=== PATIENT | female | born 1995 | race Caucasian/White ===

== ENCOUNTER 2017-08-21 16:31 | Emergency (ER) | payer MEDICAID ==
[~2017-08-21] VITALS: Ht 162.6 cm; Wt 51.5 kg
[~2017-08-21 16:31] MED LIST: ESCI10TA10 PO; LORA-445 PO; OXYC1TAB7 PO; PROM25TA10 PO
[2017-08-21] MEDS ORDERED: SODIUM CHLORIDE FLUSH 10ML SYR IVF ONE (17:00)
[2017-08-21] MEDS ORDERED: SODIUM CHLORIDE 0.9% 1,000ML IVBOLUS ONE ×2 (17:00→19:30)
[2017-08-21] MEDS ORDERED: ONDANSETRON 2MG/ML, 2ML IVPush ONE ×2 (17:00→19:30)
[2017-08-21 17:11] LABS: HEMATOCRIT 41.5 % (34.6-47.8); WHITE BLOOD COUNT 9.7 x10^3/uL (4.5-13.2)
[2017-08-21 17:23] LABS: BLOOD UREA NITROGEN 9 mg/dL (7-18)
[2017-08-21] MEDS ORDERED: ONDANSETRON 2MG/ML, 2ML ONE ×3 (17:30→20:29)
[2017-08-21 17:40] LABS: ASPARTATE AMINO TRANSFERASE 8 U/L (15-37)
[2017-08-21 19:42] VITALS: BP 108/50
== END 2017-08-21 21:14 | disposition home or self-care (01) ==
LOC: ED 18:59
DX: O21.9 Vomiting of pregnancy, unspecified (principal); R11.0 Nausea; O99.331 Smoking (tobacco) complicating pregnancy, first trimester; F17.210 Nicotine dependence, cigarettes, uncomplicated; Z3A.08 8 weeks gestation of pregnancy
CPT/HCPCS: 36415; 76801; 80053; 81003; 84702; 85025; 96361; 96374; 96375; 99285; J2405; J7030

== ENCOUNTER 2017-09-25 22:46 | Emergency (ER) | payer MEDICAID ==
[~2017-09-25] VITALS: Ht 162.6 cm; Wt 50.0 kg
[2017-09-26] MEDS ORDERED: KETOROLAC 30 MG/1 ML ONE (00:21)
[2017-09-26 00:25] LABS: HEMATOCRIT 41.8 % (34.6-47.8); HEMOGLOBIN 13.9 g/dL (11.7-16.4); WHITE BLOOD COUNT 10.4 x10^3/uL (4.5-13.2)
[2017-09-26] MEDS ORDERED: KETOROLAC 30 MG/1 ML IVPush ONE (00:30)
[2017-09-26] MEDS ORDERED: SODIUM CHLORIDE 0.9% 1,000ML IVBOLUS ONE (00:30)
[2017-09-26] MEDS ORDERED: SODIUM CHLORIDE FLUSH 10ML SYR IVF ONE (00:30)
[2017-09-26 00:37] LABS: ASPARTATE AMINO TRANSFERASE 12 U/L (15-37); BLOOD UREA NITROGEN 9 mg/dL (7-18)
[2017-09-26 03:28] VITALS: BP 111/53
== END 2017-09-26 03:30 | disposition home or self-care (01) ==
LOC: ED 23:59
DX: N30.01 Acute cystitis with hematuria (principal); M32.9 Systemic lupus erythematosus, unspecified; F19.10 Other psychoactive substance abuse, uncomplicated
CPT/HCPCS: 36415; 76770; 76830; 80053; 81001; 83690; 84703; 85025; 87086; 96361; 96374; 99285; J1885; J7030

== ENCOUNTER 2018-03-01 03:43 | Emergency (ER) | payer MEDICAID ==
[~2018-03-01] VITALS: Ht 165.1 cm; Wt 56.0 kg
[2018-03-01 03:47] VITALS: BP 121/91
== END 2018-03-01 05:22 | disposition home or self-care (01) ==
LOC: ED 05:19
DX: H66.002 Acute suppurative otitis media without spontaneous rupture of ear drum, left ear (principal); G44.319 Acute post-traumatic headache, not intractable; R11.2 Nausea with vomiting, unspecified; F07.81 Postconcussional syndrome; Z90.49 Acquired absence of other specified parts of digestive tract; Z88.1 Allergy status to other antibiotic agents; Z88.8 Allergy status to other drugs, medicaments and biological substances
CPT/HCPCS: 70450; 99284

== ENCOUNTER 2018-06-22 21:47 | Emergency (ER) | payer MEDICAID ==
[~2018-06-22] VITALS: Ht 165.1 cm; Wt 54.6 kg
[2018-06-22 21:48] VITALS: BP 151/100
[2018-06-22] MEDS ORDERED: ONDANSETRON ODT 4 MG PO ONE (22:30)
[2018-06-22] MEDS ORDERED: MAALOX/HYOSCYAMINE/LIDOCAINE 45 ML BTL PO ONE (22:30)
[2018-06-22] MEDS ORDERED: MAALOX/HYOSCYAMINE/LIDOCAINE 45 ML BTL ONE (22:32)
[2018-06-22] MEDS ORDERED: ONDANSETRON ODT 4 MG ONE (22:32)
[2018-06-22 22:42] LABS: BASOPHILS # (AUTO) 0.04 x10^3/uL (0-0.3); BASOPHILS % (AUTO) 1 % (0-1); EOSINOPHILS # (AUTO) 0.22 x10^3/uL (0-0.8); EOSINOPHILS % (AUTO) 3 % (1-7); LYMPHOCYTES % (AUTO) 20 % (22-44); MD NO; MEAN CORPUSCULAR HEMOGLOBIN 32.4 pg (27.0-34.8); MEAN CORPUSCULAR HGB CONC 34.2 g/dL (32.4-35.8); MEAN CORPUSCULAR VOLUME 94.6 fL (80-100); MEAN PLATELET VOLUME 8.2 fL (7.4-10.4); MONOCYTES # (AUTO) 0.61 x10^3/uL (0-1.4); MONOCYTES % (AUTO) 7 % (2-9); NEUTROPHILS # (AUTO) 6.05 x10^3/uL (1.8-8.0); NEUTROPHILS % (AUTO) 70 % (42-75); PLATELET COUNT 336 x10^3/uL (130-400); RED CELL DISTRIBUTION WIDTH 13.1 % (9.6-15.2)
[2018-06-22 22:53] LABS: ALANINE AMINOTRANSFERASE 18 U/L (12-78); ALBUMIN 3.9 g/dL (3.4-5.0); ANION GAP 6 mmol/L (5-15); CALCIUM 9.2 mg/dL (8.5-10.1); CHLORIDE 103 mmol/L (98-107); CREATININE 0.94 mg/dL (0.55-1.02)
[2018-06-22 22:56] LABS: ALKALINE PHOSPHATASE 65 U/L (45-117); BILIRUBIN,TOTAL 1.8 mg/dL (0.2-1.0); TOTAL PROTEIN 8.5 g/dL (6.4-8.2)
[2018-06-22 23:10] LABS: HCG UR SG 1.015 (1.003-1.030); MICROSCOPIC AUTO
[2018-06-22 23:13] LABS: CULTURE INDICATED? NO
== END 2018-06-23 00:24 | disposition home or self-care (01) ==
LOC: ED 06-23 00:18
DX: K29.20 Alcoholic gastritis without bleeding (principal); R11.2 Nausea with vomiting, unspecified; Z88.1 Allergy status to other antibiotic agents; Z88.8 Allergy status to other drugs, medicaments and biological substances; Z90.49 Acquired absence of other specified parts of digestive tract
CPT/HCPCS: 36415; 80053; 81001; 81025; 83690; 85025; 99284; Q0162

== ENCOUNTER 2018-09-07 16:37 | Emergency (ER) | payer MEDICAID ==
[~2018-09-07] VITALS: Ht 162.6 cm; Wt 58.1 kg
[2018-09-07] MEDS ORDERED: ONDANSETRON 2MG/ML, 2ML ONE (17:46)
[2018-09-07] MEDS ORDERED: FAMOTIDINE 20 MG/2 ML ONE (17:46)
[2018-09-07] MEDS ORDERED: SODIUM CHLORIDE 0.9% 1,000ML IVBOLUS ONE (18:00)
[2018-09-07] MEDS ORDERED: ONDANSETRON 2MG/ML, 2ML IVPush ONE (18:00)
[2018-09-07] MEDS ORDERED: FAMOTIDINE 20 MG/2 ML IVPush ONE (18:00)
[2018-09-07 18:08] LABS: BASOPHILS # (AUTO) 0.03 x10^3/uL (0-0.1); BASOPHILS % (AUTO) 0 % (0-1); EOSINOPHILS # (AUTO) 0.11 x10^3/uL (0-0.4); EOSINOPHILS % (AUTO) 1 % (1-7); LYMPHOCYTES # (AUTO) 1.33 x10^3/uL (1-3.4); LYMPHOCYTES % (AUTO) 13 % (22-44); MD NO; MEAN CORPUSCULAR HEMOGLOBIN 32.1 pg (27.0-34.8); MEAN CORPUSCULAR HGB CONC 33.9 g/dL (32.4-35.8); MEAN CORPUSCULAR VOLUME 94.8 fL (80-100); MEAN PLATELET VOLUME 8.4 fL (7.4-10.4); MONOCYTES # (AUTO) 0.53 x10^3/uL (0.2-0.8); MONOCYTES % (AUTO) 5 % (2-9); NEUTROPHILS # (AUTO) 8.05 x10^3/uL (1.8-6.8); NEUTROPHILS % (AUTO) 80 % (42-75); PLATELET COUNT 288 x10^3/uL (130-400); RED BLOOD COUNT 4.23 x10^6/uL (3.82-5.3); RED CELL DISTRIBUTION WIDTH 13.3 % (9.6-15.2)
[2018-09-07 18:20] LABS: ALANINE AMINOTRANSFERASE 16 U/L (12-78); ALBUMIN 3.6 g/dL (3.4-5.0); ANION GAP 11 mmol/L (5-15); CALCIUM 8.5 mg/dL (8.5-10.1); CHLORIDE 107 mmol/L (98-107); CREATININE 0.84 mg/dL (0.55-1.02)
[2018-09-07 18:24] LABS: ALKALINE PHOSPHATASE 46 U/L (45-117); TOTAL PROTEIN 7.6 g/dL (6.4-8.2)
[2018-09-07 18:46] LABS: MICROSCOPIC INDICATED
[2018-09-07 19:00] VITALS: BP 111/59
[2018-09-07 19:08] LABS: CULTURE INDICATED? NO
== END 2018-09-07 19:31 | disposition home or self-care (01) ==
LOC: ED 17:29
DX: K52.89 Other specified noninfective gastroenteritis and colitis (principal); K92.0 Hematemesis; F10.10 Alcohol abuse, uncomplicated
CPT/HCPCS: 36415; 80053; 81001; 83690; 84703; 85025; 86677; 96361; 96374; 96375; 99284; J2405; J3490; J7030

== ENCOUNTER 2019-09-30 19:51 | Emergency (ER) | payer MEDICAID ==
[~2019-09-30] VITALS: Ht 165.1 cm; Wt 60.0 kg
[2019-09-30] MEDS ORDERED: SODIUM CHLORIDE 0.9% 1,000ML IVBOLUS ONE (20:30)
[2019-09-30] MEDS ORDERED: SODIUM CHLORIDE FLUSH 10ML SYR IVF ONE (20:30)
[2019-09-30] MEDS ORDERED: PANTOPRAZOLE 40 MG IV IV ONE (20:30)
[2019-09-30] MEDS ORDERED: ONDANSETRON 2MG/ML, 2ML IVPush ONE (20:30)
[2019-09-30] MEDS ORDERED: MAALOX/HYOSCYAMINE/LIDOCAINE 45 ML BTL PO ONE (20:30)
[2019-09-30] MEDS ORDERED: PROMETHAZINE 25 MG/ML, 1ML IM ONE (20:30)
[2019-09-30] MEDS ORDERED: PANTOPRAZOLE 40 MG IV ONE (20:36)
[2019-09-30] MEDS ORDERED: MAALOX/HYOSCYAMINE/LIDOCAINE 45 ML BTL ONE (20:36)
[2019-09-30] MEDS ORDERED: ONDANSETRON 2MG/ML, 2ML ONE (20:36)
[2019-09-30 20:42] LABS: BASOPHILS # (AUTO) 0.02 x10^3/uL (0-0.1); BASOPHILS % (AUTO) 1 % (0-1); EOSINOPHILS # (AUTO) 0.03 x10^3/uL (0-0.4); EOSINOPHILS % (AUTO) 1 % (1-7); LYMPHOCYTES # (AUTO) 1.14 x10^3/uL (1-3.4); LYMPHOCYTES % (AUTO) 22 % (22-44); MD NO; MEAN CORPUSCULAR HEMOGLOBIN 31.8 pg (27.0-34.8); MEAN CORPUSCULAR HGB CONC 32.7 g/dL (32.4-35.8); MEAN PLATELET VOLUME 8.6 fL (7.4-10.4); MONOCYTES # (AUTO) 0.55 x10^3/uL (0.2-0.8); MONOCYTES % (AUTO) 11 % (2-9); NEUTROPHILS # (AUTO) 3.35 x10^3/uL (1.8-6.8); NEUTROPHILS % (AUTO) 66 % (42-75); PLATELET COUNT 228 x10^3/uL (130-400); RED CELL DISTRIBUTION WIDTH 13.1 % (9.6-15.2)
--- NOTE | 2019-09-30 20:48 | NUR ---
DESTIN RN: PT MEDICATED PER EMAR. 5 RIGHTS ADDRESSED.
[2019-09-30 20:55] LABS: ALBUMIN 3.7 g/dL (3.4-5.0); ANION GAP 7 mmol/L (5-15); CALCIUM 8.4 mg/dL (8.5-10.1); CHLORIDE 108 mmol/L (98-107)
[2019-09-30 21:00] LABS: ALANINE AMINOTRANSFERASE 32 U/L (12-78); ALKALINE PHOSPHATASE 37 U/L (45-117); BILIRUBIN,TOTAL 0.3 mg/dL (0.2-1.0); CREATININE 0.86 mg/dL (0.55-1.02); TOTAL PROTEIN 7.5 g/dL (6.4-8.2)
[2019-09-30 21:36] VITALS: BP 128/70
== END 2019-09-30 22:49 | disposition home or self-care (01) ==
LOC: ED 22:37
DX: K29.20 Alcoholic gastritis without bleeding (principal); Z72.89 Other problems related to lifestyle; Z90.89 Acquired absence of other organs
CPT/HCPCS: 36415; 80053; 83690; 84703; 85025; 96374; 96375; 99283; C9113; J2405; J7030

== ENCOUNTER 2020-01-13 18:22 | Emergency (ER) | payer MEDICAID, OTHER ==
[~2020-01-13] VITALS: Ht 165.1 cm; Wt 57.1 kg
[2020-01-13 18:24] VITALS: BP 159/96
[2020-01-13 18:53] LABS: BASOPHILS # (AUTO) 0.02 x10^3/uL (0-0.1); BASOPHILS % (AUTO) 0 % (0-1); EOSINOPHILS # (AUTO) 0.19 x10^3/uL (0-0.4); EOSINOPHILS % (AUTO) 3 % (1-7); LYMPHOCYTES # (AUTO) 1.52 x10^3/uL (1-3.4); LYMPHOCYTES % (AUTO) 23 % (22-44); MD NO; MEAN CORPUSCULAR HEMOGLOBIN 31.5 pg (27.0-34.8); MEAN CORPUSCULAR VOLUME 92.7 fL (80-100); MEAN PLATELET VOLUME 8.2 fL (7.4-10.4); MONOCYTES # (AUTO) 0.58 x10^3/uL (0.2-0.8); MONOCYTES % (AUTO) 9 % (2-9); NEUTROPHILS # (AUTO) 4.39 x10^3/uL (1.8-6.8); NEUTROPHILS % (AUTO) 66 % (42-75); PLATELET COUNT 288 x10^3/uL (130-400); RED BLOOD COUNT 4.78 x10^6/uL (3.82-5.3); RED CELL DISTRIBUTION WIDTH 13.9 % (9.6-15.2)
[2020-01-13 19:01] LABS: ALANINE AMINOTRANSFERASE 30 U/L (12-78); ALBUMIN 3.7 g/dL (3.4-5.0); ANION GAP 9 mmol/L (5-15); CHLORIDE 106 mmol/L (98-107); CREATININE 0.97 mg/dL (0.55-1.02)
[2020-01-13 19:06] LABS: ALKALINE PHOSPHATASE 55 U/L (45-117); BILIRUBIN,TOTAL 1.6 mg/dL (0.2-1.0); TOTAL PROTEIN 7.7 g/dL (6.4-8.2)
--- NOTE | 2020-01-13 19:39 | NUR ---
pt to room from lobby
--- NOTE | 2020-01-13 19:57 | NUR ---
Pt alert and oriented. Pt reporting dizziness and headache. Pt denies other substance abuse. Pt in gown and on full monitors. Urine sent, at bedside.
[2020-01-13] MEDS ORDERED: ONDANSETRON ODT 4 MG PO ONE (20:00)
[2020-01-13 20:23] LABS: MICROSCOPIC INDICATED
[2020-01-13 20:35] LABS: CULTURE INDICATED? NO
[2020-01-13] MEDS ORDERED: ONDANSETRON ODT 4 MG ONE (20:56)
--- NOTE | 2020-01-13 21:25 | NUR ---
P d/c'd to self care. Pt alert, oriented and ambulatory. Pt reports feeling better after zofrant admin. Pt educated on RX's, OTC meds, fluids, home care and follow-up. Pt VU. Pt ambulated out of ER.
== END 2020-01-13 21:28 | disposition home or self-care (01) ==
LOC: ED 21:00
DX: F10.239 Alcohol dependence with withdrawal, unspecified (principal); Y90.5 Blood alcohol level of 100-119 mg/100 ml
CPT/HCPCS: 36415; 80053; 80307; 81001; 84703; 85025; 85379; 93005; 99284; Q0162

== ENCOUNTER 2020-03-31 20:15 | Emergency (ER) | payer OTHER ==
[~2020-03-31] VITALS: Ht 165.1 cm; Wt 56.8 kg
--- NOTE | 2020-03-31 20:24 | NUR ---
SALES LEDGER CLERK: EKG DONE IN TRIAGE.
[2020-03-31] MEDS ORDERED: ONDANSETRON 2MG/ML, 2ML ONE (20:51)
[2020-03-31] MEDS ORDERED: FAMOTIDINE 20 MG/2 ML ONE (20:51)
[2020-03-31] MEDS ORDERED: MAALOX/HYOSCYAMINE/LIDOCAINE 45 ML BTL ONE (20:51)
[2020-03-31] MEDS ORDERED: MAALOX/HYOSCYAMINE/LIDOCAINE 45 ML BTL PO ONE (21:00)
[2020-03-31] MEDS ORDERED: SODIUM CHLORIDE FLUSH 10ML SYR IVF ONE (21:00)
[2020-03-31] MEDS ORDERED: SODIUM CHLORIDE 0.9% 1,000ML IVBOLUS ONE (21:00)
[2020-03-31] MEDS ORDERED: FAMOTIDINE 20 MG/2 ML IV ONE (21:00)
[2020-03-31] MEDS ORDERED: ONDANSETRON 2MG/ML, 2ML IVPush ONE (21:00)
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
[2020-03-31 21:23] LABS: BASOPHILS # (AUTO) 0.02 x10^3/uL (0-0.1); BASOPHILS % (AUTO) 0 % (0-1); EOSINOPHILS # (AUTO) 0.07 x10^3/uL (0-0.4); EOSINOPHILS % (AUTO) 1 % (1-7); LYMPHOCYTES # (AUTO) 1.22 x10^3/uL (1-3.4); LYMPHOCYTES % (AUTO) 18 % (22-44); MD NO; MEAN CORPUSCULAR HEMOGLOBIN 31.5 pg (27.0-34.8); MEAN CORPUSCULAR VOLUME 95.3 fL (80-100); MEAN PLATELET VOLUME 8.8 fL (7.4-10.4); MONOCYTES # (AUTO) 0.34 x10^3/uL (0.2-0.8); MONOCYTES % (AUTO) 5 % (2-9); NEUTROPHILS # (AUTO) 5.35 x10^3/uL (1.8-6.8); NEUTROPHILS % (AUTO) 77 % (42-75); PLATELET COUNT 294 x10^3/uL (130-400); RED BLOOD COUNT 4.39 x10^6/uL (3.82-5.3); RED CELL DISTRIBUTION WIDTH 13.8 % (9.6-15.2)
[2020-03-31 21:34] LABS: ALBUMIN 3.9 g/dL (3.4-5.0); ANION GAP 7 mmol/L (5-15); CALCIUM 8.7 mg/dL (8.5-10.1); CHLORIDE 109 mmol/L (98-107)
[2020-03-31 21:40] LABS: ALANINE AMINOTRANSFERASE 19 U/L (12-78); ALKALINE PHOSPHATASE 53 U/L (45-117); BILIRUBIN,TOTAL 0.9 mg/dL (0.2-1.0); CREATININE 0.81 mg/dL (0.55-1.02); TOTAL PROTEIN 7.5 g/dL (6.4-8.2)
--- NOTE | 2020-03-31 21:40 | NUR ---
PT GIVEN ZOFRAN, PEPCID AND GI COCKTAIL PER EMAR. RESTING AND DENIES CURRENT NEEDS.
[2020-03-31] MEDS ORDERED: LORazepam 2 MG/ML, 1ML ONE (21:58)
[2020-03-31] MEDS ORDERED: LORazepam 2 MG/ML, 1ML IVPush ONE (22:00)
--- NOTE | 2020-03-31 22:04 | NUR ---
PROVIDER TO BEDSIDE. PT REPORTS FEELING SHAKY AND ANXIOUS. PLACED ON 2L NC AND GIVEN 1MG ATIVAN IV.
--- NOTE | 2020-03-31 22:23 | NUR ---
PT TO AND FROM RESTROOM WITH STEADY GAIT. REPORTS FEELING BETTER AFTER ATIVAN. DRINKING WATER AT THIS TIME.
[2020-03-31] MEDS ORDERED: LORazepam 1MG TABLET ONE (22:30)
[2020-03-31] MEDS ORDERED: LORazepam 1MG TABLET PO ONE (22:30)
[2020-03-31 22:36] VITALS: BP 130/79
== END 2020-03-31 22:38 | disposition home or self-care (01) ==
LOC: ED 22:30
DX: K29.20 Alcoholic gastritis without bleeding (principal); F10.239 Alcohol dependence with withdrawal, unspecified; R11.2 Nausea with vomiting, unspecified; R94.31 Abnormal electrocardiogram [ECG] [EKG]; Y90.9 Presence of alcohol in blood, level not specified
CPT/HCPCS: 36415; 80053; 80307; 83690; 84703; 85025; 93005; 96361; 96374; 96375; 99284; J2060; J2405; J3490; J7030

== ENCOUNTER 2020-06-01 04:16 | Emergency (ER) | payer MEDICAID ==
[~2020-06-01] VITALS: Ht 167.6 cm; Wt 60.6 kg
--- NOTE | 2020-06-01 04:35 | NUR ---
Pt presents to ed c/o numbness to L side of face and down L side of body. Pt also c/o multiple bloody stools in last day. Denies any physical s/s of hypotension. States strong dependence of etoh and "i drink multiple bottles of wilberto per day." Monitoring applied. Vss. Call light within reach. Pa at bedside for assessment.
[2020-06-01 04:40] VITALS: BP 148/94
--- NOTE | 2020-06-01 05:02 | NUR ---
Pt report to Ben leung.
[2020-06-01 05:45] LABS: BASOPHILS # (AUTO) 0.04 x10^3/uL (0-0.1); BASOPHILS % (AUTO) 1 % (0-1); EOSINOPHILS # (AUTO) 0.14 x10^3/uL (0-0.4); EOSINOPHILS % (AUTO) 3 % (1-7); LYMPHOCYTES # (AUTO) 2.54 x10^3/uL (1-3.4); LYMPHOCYTES % (AUTO) 46 % (22-44); MD NO; MEAN CORPUSCULAR HEMOGLOBIN 31.7 pg (27.0-34.8); MEAN CORPUSCULAR HGB CONC 32.4 g/dL (32.4-35.8); MEAN CORPUSCULAR VOLUME 97.8 fL (80-100); MEAN PLATELET VOLUME 7.6 fL (7.4-10.4); MONOCYTES # (AUTO) 0.47 x10^3/uL (0.2-0.8); MONOCYTES % (AUTO) 8 % (2-9); NEUTROPHILS # (AUTO) 2.35 x10^3/uL (1.8-6.8); NEUTROPHILS % (AUTO) 43 % (42-75); PLATELET COUNT 280 x10^3/uL (130-400); RED BLOOD COUNT 4.27 x10^6/uL (3.82-5.3); RED CELL DISTRIBUTION WIDTH 14.4 % (9.6-15.2)
[2020-06-01 05:48] LABS: ALANINE AMINOTRANSFERASE 30 U/L (12-78); ALBUMIN 3.4 g/dL (3.4-5.0); ANION GAP 8 mmol/L (5-15); CALCIUM 8.9 mg/dL (8.5-10.1); CHLORIDE 112 mmol/L (98-107); CREATININE 0.79 mg/dL (0.55-1.02)
[2020-06-01 05:52] LABS: ALKALINE PHOSPHATASE 59 U/L (45-117); BILIRUBIN,TOTAL 0.4 mg/dL (0.2-1.0); TOTAL PROTEIN 7.1 g/dL (6.4-8.2)
[2020-06-01] MEDS ORDERED: KETOROLAC 30 MG/1 ML ONE (06:14)
[2020-06-01] MEDS ORDERED: ACETAMINOPHEN 500 MG TABLET ONE (06:14)
[2020-06-01] MEDS ORDERED: ACETAMINOPHEN 500 MG TABLET PO ONE (06:30)
[2020-06-01] MEDS ORDERED: KETOROLAC 30 MG/1 ML IM ONE (06:30)
== END 2020-06-01 06:45 | disposition home or self-care (01) ==
LOC: ED 04:52
DX: K29.20 Alcoholic gastritis without bleeding (principal); F10.220 Alcohol dependence with intoxication, uncomplicated; M79.652 Pain in left thigh; R10.13 Epigastric pain; K92.1 Melena; G40.909 Epilepsy, unspecified, not intractable, without status epilepticus; R94.31 Abnormal electrocardiogram [ECG] [EKG]; Z90.89 Acquired absence of other organs; Y90.0 Blood alcohol level of less than 20 mg/100 ml
CPT/HCPCS: 36415; 80053; 83690; 84703; 85025; 93005; 96372; 99284; J1885

== ENCOUNTER 2020-06-05 05:01 | Inpatient (IN) | payer MEDICAID ==
[~2020-06-05] VITALS: Ht 165.1 cm; Wt 68.0 kg
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
--- NOTE | 2020-06-05 05:25 | NUR ---
Dr. Mcgee at bedside for eval. pt now reports that she has pain in her jaw, especially on the R side. no oeral trauma noted, no missing teeth. pt speaking full sentences without difficulty
[2020-06-05] MEDS ORDERED: SODIUM CHLORIDE 0.9% 1,000ML IVBOLUS ONE (05:30)
[2020-06-05] MEDS ORDERED: ONDANSETRON 2MG/ML, 2ML IVPush ONE (05:30)
[2020-06-05] MEDS ORDERED: SODIUM CHLORIDE FLUSH 10ML SYR IVF ONE (05:30)
[2020-06-05] MEDS ORDERED: ONDANSETRON 2MG/ML, 2ML ONE (05:36)
[2020-06-05] MEDS ORDERED: MORPHINE SULFATE 4 MG/ML, 1ML ONE ×3 (05:37→11:17)
[2020-06-05] MEDS: MORPHINE SULFATE 4 MG/ML, 1ML IVPush PRN ×2 (05:45→08:32)
--- NOTE | 2020-06-05 05:49 | NUR ---
pt has been medicated for pain per order. [employer] at bedside spekaing to pt and mother pt to RAD for imaging
[2020-06-05 05:57] LABS: ALBUMIN 3.4 g/dL (3.4-5.0); ANION GAP 10 mmol/L (5-15); CALCIUM 7.9 mg/dL (8.5-10.1); CHLORIDE 110 mmol/L (98-107)
[2020-06-05 05:58] LABS: CREATININE 0.89 mg/dL (0.55-1.02)
[2020-06-05 05:59] LABS: BASOPHILS # (AUTO) 0.01 x10^3/uL (0-0.1); BASOPHILS % (AUTO) 0 % (0-1); EOSINOPHILS # (AUTO) 0.07 x10^3/uL (0-0.4); EOSINOPHILS % (AUTO) 1 % (1-7); LYMPHOCYTES # (AUTO) 1.32 x10^3/uL (1-3.4); LYMPHOCYTES % (AUTO) 14 % (22-44); MD NO; MEAN CORPUSCULAR HEMOGLOBIN 32.6 pg (27.0-34.8); MEAN CORPUSCULAR HGB CONC 33.2 g/dL (32.4-35.8); MEAN CORPUSCULAR VOLUME 98.4 fL (80-100); MEAN PLATELET VOLUME 8.1 fL (7.4-10.4); MONOCYTES # (AUTO) 0.64 x10^3/uL (0.2-0.8); MONOCYTES % (AUTO) 7 % (2-9); NEUTROPHILS # (AUTO) 7.69 x10^3/uL (1.8-6.8); NEUTROPHILS % (AUTO) 79 % (42-75); PLATELET COUNT 242 x10^3/uL (130-400); RED BLOOD COUNT 4.19 x10^6/uL (3.82-5.3); RED CELL DISTRIBUTION WIDTH 14.2 % (9.6-15.2)
[2020-06-05] MEDS ORDERED: OMNIPAQUE 350 MG/ML, 100ML BOTTLE ONE (06:05)
--- NOTE | 2020-06-05 06:15 | NUR ---
pt has been returned to room. mother at bedside [employer] at bedside
--- NOTE | 2020-06-05 06:33 | NUR ---
[employer] still at bedside. pt speaking in full sentences without difficulty. oral swabs given for comfort per request
--- NOTE | 2020-06-05 06:50 | NUR ---
report to Shanelle RN and Pete PORTILLO pt has been using facetime to talk to her sister and has her stepdad at bedside
--- NOTE | 2020-06-05 06:54 | NUR ---
TOOK REPORT FROM LOUIE HOPSON, ASSUME CARE AT THIS TIME.
--- NOTE | 2020-06-05 07:23 | NUR ---
PT TO XRAY
--- NOTE | 2020-06-05 08:51 | NUR ---
PT WANTING TO URINATE. PT CATH'D FOR URINE SPECIMAN. GREATER THAN 1000 CC OBTAINED. URINE SENT TO LAB.
[2020-06-05 09:17] LABS: MICROSCOPIC AUTO
[2020-06-05] MEDS ORDERED: MORPHINE SULFATE 4 MG/ML, 1ML IVPush PRN (11:00)
[2020-06-05] MEDS ORDERED: ALPR0.5T PO (12:19)
[2020-06-05] MEDS ORDERED: ONDANSETRON 2MG/ML, 2ML IVPush PRN (12:30)
[2020-06-05] MEDS ORDERED: ENALAPRILAT 1.25 MG/ML, 2ML IVPush PRN (12:30)
[2020-06-05] MEDS ORDERED: HYDROcodone/APAP 5/325 TABLET PO PRN (12:30)
[2020-06-05] MEDS ORDERED: DIPHENHYDRAMINE 25 MG CAPSULE PO PRN (12:30)
[2020-06-05] MEDS ORDERED: LORazepam 2 MG/ML, 1ML IVPush PRN (12:30)
[2020-06-05] MEDS ORDERED: PROMETHAZINE 25 MG/ML, 1ML IM PRN (12:30)
[2020-06-05] MEDS ORDERED: THIAMINE 200 MG in SODIUM CHLORIDE 0.9% 50 ML IV ONE (13:00)
[2020-06-05] MEDS: D5%-0.45NACL+KCL 20MEQ 1,000 ML IV SCH ×2 (13:58→20:12)
[2020-06-05] MEDS: morphine SULFATE 10 MG/ML, 1ML IVPush PRN ×2 (13:58→20:12)
[2020-06-05] MEDS: ONDANSETRON ODT 4 MG PO PRN (14:45)
[2020-06-05 14:54] VITALS: BP 126/87
[2020-06-05 23:00] VITALS: BP 104/68
[2020-06-06 03:11] VITALS: BP 101/67
[2020-06-06] MEDS: D5%-0.45NACL+KCL 20MEQ 1,000 ML IV SCH ×3 (03:13→22:09)
[2020-06-06 05:49] LABS: ALANINE AMINOTRANSFERASE 21 U/L (12-78); ALBUMIN 2.6 g/dL (3.4-5.0); ANION GAP 6 mmol/L (5-15); CALCIUM 7.4 mg/dL (8.5-10.1); CHLORIDE 109 mmol/L (98-107)
[2020-06-06 05:51] LABS: ALKALINE PHOSPHATASE 47 U/L (45-117); BILIRUBIN,TOTAL 1.3 mg/dL (0.2-1.0)
[2020-06-06 05:52] LABS: BASOPHILS # (AUTO) 0.03 x10^3/uL (0-0.1); BASOPHILS % (AUTO) 0 % (0-1); EOSINOPHILS # (AUTO) 0.32 x10^3/uL (0-0.4); EOSINOPHILS % (AUTO) 5 % (1-7); LYMPHOCYTES # (AUTO) 1.48 x10^3/uL (1-3.4); LYMPHOCYTES % (AUTO) 25 % (22-44); MD NO; MEAN CORPUSCULAR HEMOGLOBIN 32.9 pg (27.0-34.8); MEAN CORPUSCULAR HGB CONC 33.2 g/dL (32.4-35.8); MEAN CORPUSCULAR VOLUME 98.9 fL (80-100); MEAN PLATELET VOLUME 8.2 fL (7.4-10.4); MONOCYTES # (AUTO) 0.53 x10^3/uL (0.2-0.8); MONOCYTES % (AUTO) 9 % (2-9); NEUTROPHILS # (AUTO) 3.55 x10^3/uL (1.8-6.8); NEUTROPHILS % (AUTO) 60 % (42-75); PLATELET COUNT 184 x10^3/uL (130-400); RED BLOOD COUNT 3.53 x10^6/uL (3.82-5.3); RED CELL DISTRIBUTION WIDTH 14.6 % (9.6-15.2)
[2020-06-06 08:20] VITALS: BP 106/65
[2020-06-06] MEDS: MULTIVITAMINS/MINERALS TABLET PO SCH (09:00)
[2020-06-06] MEDS: PANTOPRAZOLE 40 MG IV IVPush SCH (09:35)
[2020-06-06] MEDS: THIAMINE 100 MG in SODIUM CHLORIDE 0.9% 50 ML IV SCH (11:59)
[2020-06-06] MEDS: morphine SULFATE 10 MG/ML, 1ML IVPush PRN ×3 (11:59→20:21)
[2020-06-06 13:09] VITALS: BP 115/74
[2020-06-06] MEDS: OXYcodone IR 5MG TABLET PO PRN ×2 (15:50→22:17)
[2020-06-06] MEDS ORDERED: MAGNESIUM SULFATE PMX 2GM/50ML 50 ML IV ONE (17:00)
[2020-06-06] MEDS: GABAPENTIN 300 MG CAPSULE PO PRN (17:11)
[2020-06-06 20:23] VITALS: BP 131/80
[2020-06-06] MEDS: ACETAMINOPHEN 325 MG TABLET PO PRN (22:17)
[2020-06-06] MEDS ORDERED: LORazepam 2 MG/ML, 1ML IV PRN ×4 (23:30)
[2020-06-06] MEDS ORDERED: LORazepam 0.5MG TABLET PO PRN (23:30)
[2020-06-06] MEDS ORDERED: LORazepam 1MG TABLET PO PRN ×4 (23:30)
[2020-06-07 02:36] VITALS: BP 133/87
[2020-06-07] MEDS: ACETAMINOPHEN 325 MG TABLET PO PRN (04:09)
[2020-06-07] MEDS: OXYcodone IR 5MG TABLET PO PRN ×3 (04:10→17:01)
[2020-06-07] MEDS: GABAPENTIN 300 MG CAPSULE PO PRN (04:10)
[2020-06-07 04:50] LABS: BASOPHILS # (AUTO) 0.02 x10^3/uL (0-0.1); BASOPHILS % (AUTO) 0 % (0-1); EOSINOPHILS # (AUTO) 0.41 x10^3/uL (0-0.4); EOSINOPHILS % (AUTO) 7 % (1-7); LYMPHOCYTES # (AUTO) 1.23 x10^3/uL (1-3.4); LYMPHOCYTES % (AUTO) 21 % (22-44); MD NO; MEAN CORPUSCULAR HEMOGLOBIN 32.6 pg (27.0-34.8); MEAN CORPUSCULAR HGB CONC 32.9 g/dL (32.4-35.8); MEAN PLATELET VOLUME 8.1 fL (7.4-10.4); MONOCYTES # (AUTO) 0.46 x10^3/uL (0.2-0.8); MONOCYTES % (AUTO) 8 % (2-9); NEUTROPHILS # (AUTO) 3.76 x10^3/uL (1.8-6.8); NEUTROPHILS % (AUTO) 64 % (42-75); PLATELET COUNT 179 x10^3/uL (130-400); RED BLOOD COUNT 3.44 x10^6/uL (3.82-5.3); RED CELL DISTRIBUTION WIDTH 14.1 % (9.6-15.2)
[2020-06-07 04:58] LABS: ANION GAP 7 mmol/L (5-15); CHLORIDE 108 mmol/L (98-107)
[2020-06-07 04:59] LABS: CALCIUM 7.7 mg/dL (8.5-10.1); CREATININE 0.76 mg/dL (0.55-1.02)
[2020-06-07] MEDS: D5%-0.45NACL+KCL 20MEQ 1,000 ML IV SCH ×3 (05:26→23:06)
[2020-06-07 07:00] VITALS: BP 107/65
[2020-06-07] MEDS: PANTOPRAZOLE 40 MG IV IVPush SCH (08:16)
[2020-06-07] MEDS: MULTIVITAMINS/MINERALS TABLET PO SCH (08:16)
[2020-06-07] MEDS: LORazepam 2 MG/ML, 1ML IV PRN ×2 (08:17→13:16)
[2020-06-07] MEDS: ONDANSETRON ODT 4 MG PO PRN (09:38)
[2020-06-07] MEDS: THIAMINE 100 MG in SODIUM CHLORIDE 0.9% 50 ML IV SCH (11:52)
[2020-06-07 12:58] VITALS: BP 126/84
[2020-06-07] MEDS ORDERED: OMNIPAQUE 350 MG/ML, 100ML BOTTLE ONE (16:21)
[2020-06-07] MEDS: morphine SULFATE 10 MG/ML, 1ML IVPush PRN (18:11)
[2020-06-07 19:20] VITALS: BP 139/93
[2020-06-08 00:57] VITALS: BP 124/85
[2020-06-08] MEDS: OXYcodone IR 5MG TABLET PO PRN ×2 (02:02→13:38)
[2020-06-08] MEDS: D5%-0.45NACL+KCL 20MEQ 1,000 ML IV SCH (06:01)
[2020-06-08] MEDS: morphine SULFATE 10 MG/ML, 1ML IVPush PRN ×3 (06:01→09:19)
[2020-06-08 06:06] LABS: BASOPHILS # (AUTO) 0.01 x10^3/uL (0-0.1); BASOPHILS % (AUTO) 0 % (0-1); EOSINOPHILS # (AUTO) 0.38 x10^3/uL (0-0.4); EOSINOPHILS % (AUTO) 8 % (1-7); LYMPHOCYTES # (AUTO) 1.19 x10^3/uL (1-3.4); LYMPHOCYTES % (AUTO) 25 % (22-44); MD NO; MEAN CORPUSCULAR HEMOGLOBIN 32.7 pg (27.0-34.8); MEAN CORPUSCULAR HGB CONC 33.2 g/dL (32.4-35.8); MEAN CORPUSCULAR VOLUME 98.5 fL (80-100); MEAN PLATELET VOLUME 7.9 fL (7.4-10.4); MONOCYTES # (AUTO) 0.43 x10^3/uL (0.2-0.8); MONOCYTES % (AUTO) 9 % (2-9); NEUTROPHILS # (AUTO) 2.83 x10^3/uL (1.8-6.8); NEUTROPHILS % (AUTO) 59 % (42-75); PLATELET COUNT 213 x10^3/uL (130-400); RED BLOOD COUNT 3.78 x10^6/uL (3.82-5.3); RED CELL DISTRIBUTION WIDTH 13.7 % (9.6-15.2)
[2020-06-08 06:17] LABS: ANION GAP 5 mmol/L (5-15); CALCIUM 8.1 mg/dL (8.5-10.1); CHLORIDE 106 mmol/L (98-107); CREATININE 0.78 mg/dL (0.55-1.02)
[2020-06-08 08:28] VITALS: BP 114/76
[2020-06-08] MEDS ORDERED: FUROSEMIDE 40 MG/4 ML IV ONE (08:30)
[2020-06-08] MEDS: PANTOPRAZOLE 40 MG IV IVPush SCH (09:17)
[2020-06-08] MEDS: MULTIVITAMINS/MINERALS TABLET PO SCH (09:18)
[2020-06-08] MEDS: ONDANSETRON ODT 4 MG PO PRN (09:59)
[2020-06-08] MEDS: THIAMINE 100 MG in SODIUM CHLORIDE 0.9% 50 ML IV SCH (13:55)
[2020-06-08 15:17] VITALS: BP 109/74
[2020-06-08] MEDS: GABAPENTIN 300 MG CAPSULE PO PRN (16:59)
[2020-06-08] MEDS ORDERED: OXYC5TAB3 PO (17:16)
[2020-06-08] MEDS ORDERED: FOLI-17 PO (17:16)
[2020-06-08] MEDS ORDERED: THIA100T67 PO (17:16)
[2020-06-09] MEDS ORDERED: PANTOPRAZOLE 40MG TABLET PO SCH (06:00)
== END 2020-06-08 18:50 | disposition home or self-care (01) | DRG 125 ==
LOC: ED 06:33 → EDIP 09:50 → 3N 12:17
PROVIDERS: ADMIT Internal Medicine; ATTEND Hospitalist
DX: S02.31XA Fracture of orbital floor, right side, initial encounter for closed fracture (principal); E83.42 Hypomagnesemia; E86.0 Dehydration; F10.229 Alcohol dependence with intoxication, unspecified; F41.9 Anxiety disorder, unspecified; G89.11 Acute pain due to trauma; S70.01XA Contusion of right hip, initial encounter; Y90.8 Blood alcohol level of 240 mg/100 ml or more; G40.909 Epilepsy, unspecified, not intractable, without status epilepticus; R82.71 Bacteriuria; B95.1 Streptococcus, group B, as the cause of diseases classified elsewhere; Z79.899 Other long term (current) drug therapy; V29.9XXA Motorcycle rider (driver) (passenger) injured in unspecified traffic accident, initial encounter; Y93.89 Activity, other specified; Y92.410 Unspecified street and highway as the place of occurrence of the external cause; Y99.8 Other external cause status; Z90.49 Acquired absence of other specified parts of digestive tract
CPT/HCPCS: 36415; 70450; 70486; 71045; 72125; 73523; 74177; 80048; 80053; 80307; 81001; 82040; 83735; 84100; 85025; 86850; 86900; 87086; 87147; 96361; 96374; G0378; J1940; J2405; J2550; J3411; Q0162; Q9967; C9113; J2060; J2270; J3475; J3480; J7030

== ENCOUNTER 2020-07-05 08:49 | Emergency (ER) | payer MEDICAID ==
[~2020-07-05] VITALS: Ht 165.1 cm; Wt 57.2 kg
[~2020-07-05 08:49] MED LIST changes: +ALPR0.5T PO; +FOLI-17 PO; +OXYC5TAB3 PO; +THIA100T67 PO
[2020-07-05 08:52] VITALS: BP 129/71
== END 2020-07-05 10:18 | disposition home or self-care (01) ==
LOC: ED 09:27
DX: R22.42 Localized swelling, mass and lump, left lower limb (principal); Z90.49 Acquired absence of other specified parts of digestive tract; Z88.1 Allergy status to other antibiotic agents; Z88.8 Allergy status to other drugs, medicaments and biological substances
CPT/HCPCS: 99284